=== PATIENT | female | born 1975 | race Two or more races ===

== ENCOUNTER 2016-04-26 18:07 | Day surgery (SDC) | payer SELFPAY ==
[2016-04-26 18:45] LABS: SPECIFIC GRAVITY 1.025 (1.001-1.030); URINE BILIRUBIN NEGATIVE (NEGATIVE); URINE BLOOD 4+ (NEGATIVE); URINE GLUCOSE (UA) NEGATIVE (NEGATIVE); URINE LEUKOCYTE ESTERASE NEGATIVE (NEGATIVE); URINE NITRITE NEGATIVE (NEGATIVE); URINE PROTEIN 1+ (NEGATIVE); URINE UROBILINOGEN 1 mg/dL (0-1 mg/dl)
[2016-04-26 18:47] LABS: HCG,QUALITATIVE URINE NEGATIVE
[2016-04-26 18:48] LABS: URINE APPEARANCE SL CLOUDY; URINE COLOR DARK YELLOW
[2016-04-26 18:58] LABS: URINE AMORPHOUS SEDIMENT MODERATE; URINE BACTERIA 2+; URINE EPITHELIAL CELLS 15-30 /hpf
[2016-04-26] MEDS ORDERED: MORPHINE SULFATE 4 MG/ML SYRINGE ONE ×2 (19:34→21:15)
[2016-04-26] MEDS ORDERED: LACTATED RINGERS 1,000 ML ONE (19:34)
[2016-04-26] MEDS ORDERED: ONDANSETRON 4 MG/2ML 2 ML VIAL ONE (19:34)
[2016-04-26 19:49] LABS: ABSOLUTE NEUTROPHIL COUNT 6.2 K/mm3 (1.8-7.7); BASO % 0.1 % (0.2-1.0); EOS # 0.1 (0.0-0.5); EOS % 0.9 % (0.9-2.9); HEMATOCRIT 34.8 % (37.0-47.0); HEMOGLOBIN 11.2 gm/l (12.0-16.0); IMM NEUT% 0.1 % (0-1); LYMPH % 12.3 % (15-45); MEAN CELL VOLUME 87.2 fl (81.0-99.0); MEAN CORPUSCULAR HEMOGLOBIN 28.1 pg (27.0-31.0); MEAN CORPUSCULAR HGB CONC 32.2 g/dl (33.0-37.0); MONO # 0.6 (0.0-0.8); MONO % 7.5 % (4-12); NEUT % 79.1 % (43-75); PLATELET COUNT 288 K/mm3 (130-400); RED CELL DISTRIBUTION WIDTH 13.5 % (11.5-14.5)
[2016-04-26 20:01] LABS: ALBUMIN 3.3 gm/dL (3.5-5.7); CALCIUM 8.3 mg/dL (8.6-10.3)
--- NOTE | 2016-04-26 20:38 | US ---
LIMITED ABDOMINAL ULTRASOUND HISTORY: Right upper quadrant pain. Limited sonography of the right upper quadrant performed. Correlation against 02/08/2014 study. FINDINGS: GALLBLADDER LENGTH: 6.6 cm. GALLBLADDER WALL THICKNESS: 3.8 mm. GALLBLADDER CONTENT: Mobile stones and sludge. SONOGRAPHIC CASTILLO'S SIGN: Positive. COMMON BILE DUCT CALIBER: Limited visualization. Common hepatic duct 3.8 mm. REGIONAL FREE FLUID: None. IMPRESSION: 1. Cholelithiasis and gallbladder sludge, new since January 2014. Gallbladder wall thickness at upper normal limits. 2. Positive sonographic Castillo's sign. 3. No biliary dilatation or free fluid. Results were electronically transmitted to the electronic medical record at 04/26/2016 at 2034 hours.
[2016-04-26] MEDS ORDERED: MAGNESIUM HYDROXIDE 30 ML UDCUP PO PRN (21:02)
[2016-04-26] MEDS ORDERED: BLISTEX LIPSTICK 1 EACH TP PRN (21:02)
[2016-04-26] MEDS ORDERED: MENTHOL/CETYLPYRD 1 EACH LOZENGE PO PRN (21:02)
[2016-04-26 21:59] VITALS: BMI 26.9
[2016-04-26] MEDS ORDERED: POTASSIUM CHLORIDE 20MEQ/100ML 100 ML IV ONE (22:15)
[2016-04-26] MEDS ORDERED: NICOTINE 21 MG PATCH 1 EACH TD SCH (22:15)
[2016-04-26] MEDS ORDERED: PIPERACILLIN-TAZO PREMIX BAG 50 ML IV ONE (22:25)
[2016-04-26] MEDS: LACTATED RINGERS 1,000 ML IV SCH (22:26)
[2016-04-26] MEDS: HYDROMORPHONE HCL 0.5 MG/0.5 ML SYRINGE IV PRN ×2 (22:26→22:56)
[2016-04-26] MEDS ORDERED: PUMP TUBING ONE (22:31)
[2016-04-26] MEDS: PIPERACILLIN-TAZO PREMIX BAG 3.375 G in Premix (D5W) 50 ml 1 EACH IV SCH (23:17)
[2016-04-26] MEDS ORDERED: ONDANSETRON 4 MG/2ML 2 ML VIAL IV PRN (23:30)
[2016-04-26] MEDS: HYDROMORPHONE HCL 1 MG/ML SYRINGE IV PRN (23:53)
[2016-04-27] MEDS: HYDROMORPHONE HCL 1 MG/ML SYRINGE IV PRN ×2 (02:35→04:05)
[2016-04-27] MEDS: PIPERACILLIN-TAZO PREMIX BAG 3.375 G in Premix (D5W) 50 ml 1 EACH IV SCH ×2 (04:54→09:40)
[2016-04-27] MEDS: LACTATED RINGERS 1,000 ML IV SCH ×2 (05:45→20:12)
[2016-04-27] MEDS: HYDROMORPHONE HCL 0.5 MG/0.5 ML SYRINGE IV PRN ×2 (05:54→08:43)
[2016-04-27 07:09] LABS: HEMOGLOBIN 9.7 gm/l (12.0-16.0); MEAN CELL VOLUME 87.5 fl (81.0-99.0); MEAN CORPUSCULAR HEMOGLOBIN 28.3 pg (27.0-31.0); MEAN CORPUSCULAR HGB CONC 32.3 g/dl (33.0-37.0); RED CELL DISTRIBUTION WIDTH 13.9 % (11.5-14.5)
[2016-04-27 07:28] LABS: ALBUMIN 2.7 gm/dL (3.5-5.7); CALCIUM 7.6 mg/dL (8.6-10.3)
[2016-04-27] MEDS ORDERED: FLU VACC 2016-17 (36MO-64Y)/PF 60 MCG/0.5 ML SYRINGE IM V ONE (11:00)
[2016-04-27] MEDS ORDERED: LIDOCAINE 1%/EPI 1:100,000 (MULTI DOSE) 30 ML VIAL ONE (11:23)
[2016-04-27] MEDS ORDERED: LIDOCAINE 2% (PRES FREE) 5 ML VIAL ONE (11:35)
[2016-04-27] MEDS ORDERED: PROPOFOL 20 ML IV ONE (11:35)
[2016-04-27] MEDS ORDERED: ROCURONIUM BROMIDE 10 MG/ML DOSE IV ONE ×10 (11:36)
[2016-04-27] MEDS ORDERED: MIDAZOLAM HCL 1 MG/ML 2ML VIAL ONE (11:37)
[2016-04-27] MEDS ORDERED: FENTANYL 5 ML ONE (11:38)
[2016-04-27] MEDS ORDERED: ONDANSETRON 4 MG/2ML 2 ML VIAL ONE (12:43)
[2016-04-27] MEDS ORDERED: DEXAMETHASONE SOD PHOS 4 MG/1 ML VIAL ONE (12:44)
[2016-04-27] MEDS ORDERED: GLYCOPYRROLATE 0.2 MG/ML 1ML VIAL ONE ×4 (12:46)
[2016-04-27] MEDS ORDERED: NEOSTIGMINE METHYLSULFATE 1 MG/ML DOSE ONE ×6 (12:46)
[2016-04-27] MEDS ORDERED: ONDANSETRON 4 MG/2ML 2 ML VIAL IV PRN ×2 (12:53→13:40)
[2016-04-27] MEDS ORDERED: PROMETHAZINE HCL 25 MG/ML VIAL IM PRN (12:53)
[2016-04-27] MEDS ORDERED: LABETALOL HCL 5 MG/ML 20ML VIAL IV PRN (12:53)
[2016-04-27] MEDS ORDERED: HYDRALAZINE HCL 20 MG/1 ML VIAL IV PRN (12:53)
[2016-04-27] MEDS ORDERED: FENTANYL 100 MCG/2 ML VIAL IV PRN (12:53)
[2016-04-27] MEDS ORDERED: HYDROMORPHONE HCL 1 MG/ML SYRINGE IV PRN ×2 (12:53→13:40)
[2016-04-27] MEDS ORDERED: NALOXONE HCL 0.4 MG/ML VIAL IV PRN (12:53)
[2016-04-27] MEDS ORDERED: MEPERIDINE 25 MG/ML SYRINGE IV PRN (12:53)
[2016-04-27] MEDS ORDERED: ATROPINE SULFATE 0.4 MG/1 ML VIAL IV PRN (12:53)
[2016-04-27] MEDS ORDERED: KETOROLAC TROMETHAMINE 30 MG/ML 1 ML VIAL ONE (12:55)
[2016-04-27] MEDS ORDERED: LACTATED RINGERS 1,000 ML IV SCH ×2 (13:00→13:40)
[2016-04-27] MEDS ORDERED: HYDROMORPHONE HCL 0.5 MG/0.5 ML SYRINGE IV PRN (13:46)
[2016-04-27] MEDS: OXYCODONE/ACETAMINOPHEN 5/325 MG TABLET PO PRN ×2 (16:36→20:41)
[2016-04-27 20:54] VITALS: BP 101/58
--- NOTE | 2016-04-28 07:29 | OP ---
Nadia Dukes [id number] : 1975 PREPROCEDURE DIAGNOSIS: Acute cholecystitis. POSTPROCEDURE DIAGNOSIS: Acute cholecystitis. PROCEDURE PERFORMED: Laparoscopic cholecystectomy. SURGEON: Dr. Angela Basilio GRANITE CUTTER: Danielle Betancur ANESTHESIA: General. FINDINGS: A lot of fatty tissue along the gallbladder wall, some edematous changes, signs of chronic inflammation at the back of the gallbladder. TECHNIQUE: The patient was brought back to the operating room and placed under general anesthesia. The abdomen was prepped and draped in sterile surgical fashion. Local anesthetic was placed just to the right of the umbilicus and a 15 blade scalpel was used to make a less than 1 cm transverse incision. A 5 mm port with 0 degree scope and insufflation was used to slowly enter the abdomen looking at the abdominal wall as we went. Once we entered the abdomen insufflation pushed the abdominal contents away and no damaged organs on entry. We switched to a 30 degree scope and then placed an 11 mm port subxiphoid and two 5 mm ports in the right upper quadrant laterally. Once those were placed, we grasped the gallbladder, pushed it superiorly, it was quite distended and grasping it actually put a hole in it and spilled some bile. We placed another grasper at the neck of the gallbladder for retraction and then used a [place] dissector to dissect out the cystic artery and duct. We cleared the strictures easily from the surrounding tissue, these were going right into the gallbladder, they were well away from the common duct structures and once I had all of the structures freed up I clipped with two proximal and one distal clip on the cystic duct and artery and divided with EndoShears. There was no other branches just the two clear vessels and then I used hook cautery to remove the gallbladder from the liver bed. Once it was almost off I examined the area of the clips, there was no active oozing or bleeding, the liver bed was nice and dry. I used the suction clinical auditor to clean the area around the liver bed and the clips as there was some bile split from the gallbladder. Once that was cleaned up fairly well, I removed the gallbladder completely from the liver bed and placed it in an Endocatch bag. Right where it was removed from the liver bed there was just a little bit of oozing, so I used electrocautery to cauterize this and then I used the suction clinical auditor to clean out the area around the liver again making sure it was nice and clear, there was no oozing, bleeding, or bile leakage, then I pulled out the gallbladder from the subxiphoid port site. I then used a Nguyễn Kayli and 0 Vicryl to close the subxiphoid port fascia and then closed the skin incisions with 4-0 Monocryl. Steri-Strips were applied and the patient was awakened and returned to recovery room in stable condition. All needle, instrument, and sponge counts were correct at the end of the case. JOB: [id number]
--- NOTE | 2016-04-28 09:34 | PDOC1 ---
HPI: Date of Admission: 04/27/2016 Chief Complaint: epigastric pain History of Present Illness: This is a 40 y/o F with epigastric and RUQ abdominal pain who is previously healthy. She has had the symptoms for 4 days now. She says the symptoms have been getting worse and she can't take the pain any longer. She has nausea but no vomiting. Some diarrhea, but no white stools. No dark skin/yellow skin. No itching skin. No sick contacts. No fevers/chills. The pain is epigastric and RUQ and radiates to the back. PMH: healthy PSH: none MEdications: none Allergies: NKDA SH: Denies ETOH, Denies illicit drug use, USes 1/2 ppd tobacco FH: reviewed and non contributory - Review of Systems Reports Nausea, Denies Chest Pain, Denies Shortness of Breath, Denies Cough, Denies Sputum, Denies Vomiting, Denies Diarrhea, Denies Headache, Denies Other H&P Objective GS - Objective Vital Signs Temperature 98.0 F 04/27/16 07:19 Pulse Rate 84 04/27/16 07:19 Respiratory Rate 20 04/27/16 07:19 Blood Pressure 85/51 04/27/16 07:28 O2 Saturation by Pulse Oximetry 98 04/27/16 07:19 Oxygen Delivery Method Room Air Oxygen Flow Rate 0 Laboratory Results - last 24 hr 04/26/16 04/26/16 04/27/16 17:40 19:35 06:20 WBC 7.8 7.3 RBC 3.99 L 3.43 L Hgb 11.2 L 9.7 L Hct 34.8 L 30.0 L MCV 87.2 87.5 MCH 28.1 28.3 MCHC 32.2 L 32.3 L RDW 13.5 13.9 Plt Count 288 256 Neut % (Auto) 79.1 H Lymph % (Auto) 12.3 L Clinch % (Auto) 7.5 Baso % (Auto) 0.1 L Absolute Neuts (auto) 6.2 Eosinophils % 0.9 Sodium 133 L 136 Potassium 3.3 L 3.7 Chloride 102 103 Carbon Dioxide 25 27 Anion Gap 9 10 BUN 15 14 Creatinine 0.4 L 0.6 Estimated GFR 176 H 110 H BUN/Creatinine Ratio 38 H 23 H Glucose 93 95 Calcium 8.3 L 7.6 L Total Bilirubin 0.3 0.4 AST 19 26 ALT 17 24 Alkaline Phosphatase 74 65 Total Protein 6.6 5.5 L Albumin 3.3 L 2.7 L Globulin 3.3 2.8 Albumin/Globulin Ratio 1.0 1.0 Lipase 14 Urine Color Dark yellow Urine Appearance Sl cloudy Urine pH 6.0 Ur Specific [place] 1.025 Urine Protein 1+ Urine Glucose (UA) Negative Urine Ketones Negative Urine Blood 4+ Urine Nitrite Negative Urine Bilirubin Negative Urine Urobilinogen 1 mg/dl Ur Leukocyte Esterase Negative Urine RBC 2-3 Urine WBC 3-5 Ur Epithelial Cells 15-30 Amorphous Sediment Moderate Urine Bacteria 2+ Urine HCG, Qual Negative % Immature Granulocyt 0.1 Intake and Output 04/25/16 04/26/16 04/27/16 23:59 23:59 23:59 Intake Total 1558 Output Total 400 Balance 1158 General: Alert, Oriented x3, Cooperative, No Acute Distress HEENT: Atraumatic, PERRLA, EOMI, Mucous membr. moist/pink Lungs: Clear to Auscultation Bilaterally, Normal Air Movement Cardiovascular: Regular Rate and Rhythm, Normal S1, Normal S2. negative: Murmur Abdomen: Soft, Tenderness (epigastric and RUQ, hyperreactive), Non-Distended, Normal Bowel Sounds Skin: Normal Color, Warm, Dry, Intact - Assessment/ Plan (1) Cholecystitis, acute with cholelithiasis Status: Acute Code: K80.00US shows wall thickening and stones, signs of acute cholecystitis With the amount of pain she is having and these findings I started her on ABX and will take her to the OR for laparoscopic cholecystectomy based on labs and lack of dilation of ducts I do not feel need to do cholangiogram. Discussed surgery, risks/benefits/alternatives with the patient and family. Answered their questions. They understand and wish to proceed. - Procedure, Risks, Alternatives, Question PARQ: N/A () I discussed the procedure of (). We discussed risks including bleeding, infection, injury to the () and possible need to (). I addressed the (patient's/family's/caregiver's) concerns and questions. The (patient/family/caregiver) expressed understanding and willingness to proceed.
--- NOTE | 2016-05-01 10:46 | SURGPATH ---
[facility] [address] [place] [id number] Patient Name: JUAN SANTOS MR#: [id number] : 1975 Gender: F Specimen #: [id number] Collected: 04/27/2016 Received: 04/28/2016 Reported: 05/01/2016 Submitting Phys: PANCHITO DE LEON Copy To Phys: [facility] Clinical History / Pre-Operative Diagnosis: ACUTE CHOLECYSTITIS Specimen Source / Surgical Procedure Performed: GALLBLADDER Interpretation: GALLBLADDER, CHOLECYSTECTOMY: - CHRONIC CHOLECYSTITIS, CHOLESTEROLOSIS AND CHOLELITHIASIS Electronically Signed Out David Aldana M.D. Gross Description: The specimen is received in a formalin filled container labeled with the patient's name and "gallbladder". A previously incised gallbladder is 6.0 x 2.5 cm. The serosa is smooth and ba. The wall averages 0.3 cm. The mucosa is ba and velvety with scattered slightly raised yellow flecks. There is no nodule or induration. The lumen contains a small amount of thick, translucent, yellow-green bile and several nodular, yellow-ab calculi up to 0.7 cm. Three sales representative printing paper sections are submitted in one cassette including a cross section through the cystic duct surgical margin, a central cross section and a longitudinal section through the fundus. Filipe Montes Microscopic Description: The slide contains portions of gallbladder with glands that extend into the fibromuscular wall. There is patchy chronic inflammation. Cholesterolosis is also present. Features of acute cholecystitis are not identified. 1: [id number] K81.1
== END 2016-04-27 21:17 | disposition home or self-care (01) ==
LOC: ED 18:07 → SDC 21:05 → MS 21:05 → SDC 04-27 21:17
PROVIDERS: ATTEND Surgery
PROC: 0FT44ZZ Resection of Gallbladder, Percutaneous Endoscopic Approach (ICD-10-PCS; principal; 2016-04-26)
PROC: 3E0234Z Introduction of Serum, Toxoid and Vaccine into Muscle, Percutaneous Approach (ICD-10-PCS; 2016-04-26)
DX: K80.10 Calculus of gallbladder with chronic cholecystitis without obstruction (principal); Z23 Encounter for immunization
CPT/HCPCS: 47562; 90471; 90682; 83690; 81025; 85027; 85025; 80053 ×2; 81001; 36415; 76705; 96375; 96376; 99285 ×2; 96374; 96361 ×2; A9270 ×3; J1170 ×7; J3010; J1100; J2270 ×2; J3480; J1885; J2250; J2001; J2405 ×3; J2543; J7120 ×4; J7030